=== PATIENT | female | born 1985 | race Caucasian/White ===

== ENCOUNTER 2016-04-03 14:26 | Inpatient (IN) ==
[~2016-04-03 14:26] MED LIST: LEVOFLOXACIN 750 MG/150 ML BAG IV SCH
[2016-04-03] MEDS ORDERED: IOPAMIDOL 100 ML BOTTLE IV ONE (14:27)
[2016-04-03] MEDS ORDERED: 0.9 % SODIUM CHLORIDE 1,000 ML IV ONE ×2 (14:36→17:00)
[2016-04-03] MEDS ORDERED: IPRATROPIUM/ALBUTEROL 3 ML AMPUL.NEB NEB ONE (14:46)
--- NOTE | 2016-04-03 14:59 | Emergency Department Note ---
SOB HPI - General Chief Complaint: Shortness of Breath/Dyspnea Stated Complaint: SOB Time Seen by Provider: 04/03/16 14:53 Source: patient Mode of arrival: ambulatory Limitations: no limitations - History of Present Illness This patient has had lung problems for about 3 years. She has a chronic cough that brings up phlegm. Previous CT scans of chest looks like meth but she doesn 't use meth. Rheumatoid arthritis has been entertained as a possibility. She does not carry a specific diagnosis as far as her lungs. Never had a blood clot. MD Complaint: shortness of breath, cough Onset (ago): year(s) - Related Data Home Medications Medication Instructions Recorded Confirmed cholecalciferol (vitamin D3) 2,000 2,000 unit PO ONCE 09/28/15 04/03/16 unit capsule etonogestrel 68 mg subdermal 1 implant SUBDERMAL ONCE 09/28/15 04/03/16 implant Inhaler, Assist Devices [Aerotrach 1 inh .ROUTE .MEDSUPPLY 04/03/16 04/03/16 Plus] Previous Rx's Medication Instructions Recorded nortriptyline 25 mg capsule 25 mg PO QHS #60 cap 09/28/15 albuterol sulfate HFA 90 2 puff INHALATION Q6-8H PRN #18 g 01/02/16 mcg/actuation aerosol inhaler fluticasone 110 mcg/actuation HFA 2 inh INHALATION BID #12 g 01/02/16 aerosol inhaler acetaminophen 300 mg-codeine 30 mg 1 tab PO BID PRN #30 tab 01/15/16 tablet hydroxychloroquine 200 mg tablet 200 mg PO BID #60 tab 02/15/16 fexofenadine 180 mg tablet 180 mg PO QDAY #60 tab 02/29/16 pantoprazole 40 mg tablet,delayed 40 mg PO QAM #60 tab 02/29/16 release Allergies Allergy/AdvReac Type Severity Reaction Status Date / Time No Known Drug Allergies Allergy Verified 02/29/16 13:04 Review of Systems Constitutional: Denies: fever, chills Eyes: Denies: eye pain ENT ED: Denies: ear pain Cardiovascular: Reports: chest pain. Denies: palpitations Respiratory: Reports: cough, dyspnea Gastrointestinal: Denies: abdominal pain, nausea Genitourinary: Denies: urgency Musculoskeletal: Denies: back pain Integumentary: Denies: rash Neurological: Denies: headache Past Medical History - Past Medical History Medical history: Reports: arthritis (rheumatoid), asthma, GERD, hypertension, kidney stones, migraine, other (UTI) Surgical history ED: Reports: cholecystectomy, tonsillectomy [employer] GRINDER history: Reports: polycystic ovary syndrome - Social History Alcohol use: Reports: Occasionally Drug use: Reports: none Physical Exam - General Limitations: no limitations General appearance: alert - Head Head exam: atraumatic - Eye Eye exam: Present: normal appearance - ENT ENT exam: normal exam - Neck Neck exam: Present: normal inspection - Chest Chest inspection: Present: normal inspection - Respiratory Respiratory exam: Present: other (rales in the bases) - Cardiovascular Cardiovascular exam: Present: regular rate, normal rhythm, normal heart sounds - Abdominal Exam Abdominal exam: Present: soft. Absent: distention, tenderness - Neurological Exam Neurological exam: Present: alert - Psychiatric Psychiatric exam: Present: normal affect - Skin Skin exam: Present: warm, dry Course Vital Signs Temperature 97.4 F L 04/03/16 14:28 Pulse Rate 110 H 04/03/16 14:28 Respiratory Rate 26 H 04/03/16 14:28 Blood Pressure 101/70 04/03/16 14:28 Pulse Oximetry (%) 99 04/03/16 14:28 Temperature 97.8 F 04/04/16 07:01 Pulse Rate 82 04/04/16 07:29 Respiratory Rate 18 04/04/16 07:29 Blood Pressure 108/71 04/04/16 05:00 Pulse Oximetry (%) 96 04/04/16 07:29 Shortness of Breath/Dyspnea - [facility] Narrative Medical decision making narrative: I discussed this patient with the shackler in [place] and she requested that we send her there for further evaluation and treatment. - Lab Data Lab results reviewed: Yes I reviewed the patient's lab results. Result diagrams: 04/04/16 04:20 04/04/16 04:20 Lab Results 04/03/16 04/03/16 04/03/16 Range/Units 14:36 14:36 14:36 WBC 14.4 H (4.5-11.0) K/mcL RBC 5.26 H (4.00-5.20) M/mcL Hgb 14.6 (12.0-15.0) g/dL Hct 44.9 (36.0-48.0) % MCV 85.3 (80.0-100.0) fL MCH 27.9 (26.0-34.0) pg MCHC 32.6 (31.0-36.0) g/dL RDW 13.5 (11.5-14.5) % Plt Count 304 (140-440) K/mcL MPV 8.1 (7.4-10.4) fL Gran % 79.8 H (38.0-78.0) % Lymph % (Auto) 12.9 L (15.5-49.0) % Edwards % (Auto) 5.8 (1.0-9.0) % Eos % (Auto) 1.3 (0.0-7.0) % Baso % (Auto) 0.2 (0.0-2.0) % Gran # 11.5 H (1.8-8.0) K/mcL Lymph # 1.9 (1.5-4.8) K/mcL Edwards # 0.8 (0.1-0.9) K/mcL Eos # 0.2 (0.0-0.7) K/mcL Baso # 0 (0.0-0.3) K/mcL D-Dimer 0.63 H (0.00-0.40) ug/ml VBG Lactic Acid (0.5-2.2) mmol/L Sodium 136 (133-145) mmol/L Potassium 3.5 (3.3-5.1) mmol/L Chloride 100 (96-108) mmol/L Carbon Dioxide 23 (22-30) mmol/L Anion Gap 13.0 (8-16) BUN 7 (6-20) mg/dl Creatinine 0.8 (0.6-1.1) mg/dl GFR Calculation 100 Glucose 112 H (70-105) mg/dL Calcium 9.2 (8.6-10.4) mg/dl Total Bilirubin 0.4 (0.0-1.0) mg/dL AST 17 (0-37) U/l ALT 10 (0-40) U/l Alkaline Phosphatase 73 (39-117) U/L NT-Pro-B Natriuret Pep (0-125) pg/ml Total Protein 8.4 (5.9-8.4) gm/dL Albumin 4.0 (3.2-5.2) gm/dL Globulin 4.4 H (2.2-3.7) gm/dL Albumin/Globulin Ratio 0.9 L (1.0-2.3) Mycoplasma pneumon IgM (NEGATIVE) 04/03/16 04/03/16 04/03/16 Range/Units 14:36 14:36 18:00 WBC (4.5-11.0) K/mcL RBC (4.00-5.20) M/mcL Hgb (12.0-15.0) g/dL Hct (36.0-48.0) % MCV (80.0-100.0) fL MCH (26.0-34.0) pg MCHC (31.0-36.0) g/dL RDW (11.5-14.5) % Plt Count (140-440) K/mcL MPV (7.4-10.4) fL Gran % (38.0-78.0) % Lymph % (Auto) (15.5-49.0) % Edwards % (Auto) (1.0-9.0) % Eos % (Auto) (0.0-7.0) % Baso % (Auto) (0.0-2.0) % Gran # (1.8-8.0) K/mcL Lymph # (1.5-4.8) K/mcL Edwards # (0.1-0.9) K/mcL Eos # (0.0-0.7) K/mcL Baso # (0.0-0.3) K/mcL D-Dimer (0.00-0.40) ug/ml VBG Lactic Acid 0.5 (0.5-2.2) mmol/L Sodium (133-145) mmol/L Potassium (3.3-5.1) mmol/L Chloride (96-108) mmol/L Carbon Dioxide (22-30) mmol/L Anion Gap (8-16) BUN (6-20) mg/dl Creatinine (0.6-1.1) mg/dl GFR Calculation Glucose (70-105) mg/dL Calcium (8.6-10.4) mg/dl Total Bilirubin (0.0-1.0) mg/dL AST (0-37) U/l ALT (0-40) U/l Alkaline Phosphatase (39-117) U/L NT-Pro-B Natriuret Pep < 50.0 (0-125) pg/ml Total Protein (5.9-8.4) gm/dL Albumin (3.2-5.2) gm/dL Globulin (2.2-3.7) gm/dL Albumin/Globulin Ratio (1.0-2.3) Mycoplasma pneumon IgM Negative (NEGATIVE) - Radiology Data Radiology results reviewed: Yes I reviewed the patient's radiology results. Disposition Clinical Impression: Hypoxic respiratory failure, Pneumonitis Disposition: [facility] Condition: Fair
[2016-04-03 15:27] LABS: Basophils # (Auto) 0 K/mcL (0.0-0.3); Basophils % (Auto) 0.2 % (0.0-2.0); Eosinophils # (Auto) 0.2 K/mcL (0.0-0.7); Eosinophils % (Auto) 1.3 % (0.0-7.0); Granulocytes % (Auto) 79.8 % (38.0-78.0); Lymphocytes # (Auto) 1.9 K/mcL (1.5-4.8); Lymphocytes % (Auto) 12.9 % (15.5-49.0); Mean Cell Volume 85.3 fL (80.0-100.0); Mean Corpuscular HGB Conc 32.6 g/dL (31.0-36.0); Mean Corpuscular Hemoglobin 27.9 pg (26.0-34.0); Monocytes # (Auto) 0.8 K/mcL (0.1-0.9); Monocytes % (Auto) 5.8 % (1.0-9.0); Platelet Count 304 K/mcL (140-440); RBC 5.26 M/mcL (4.00-5.20); Red Cell Distribution Width 13.5 % (11.5-14.5)
[2016-04-03 15:38] LABS: ALT/SGPT 10 U/l (0-40); Albumin/Globulin Ratio 0.9 (1.0-2.3); Alkaline Phosphatase 73 U/L (39-117); Blood Urea Nitrogen 7 mg/dl (6-20)
--- NOTE | 2016-04-03 15:59 | XRay Report ---
CLINICAL INFORMATION: Shortness of breath COMPARISON: Chest CT from 03/07/2016 FINDINGS: Heart size, mediastinum and pulmonary vessels are normal. There is mild bilateral mid and lower lung groundglass airspace disease which show slight progression from 01/10/2016. No effusions IMPRESSION: Mild bilateral groundglass airspace disease in the mid and lower lungs which show slight progression from 01/10/2016 Interpreted and Authenticated by: Martin Chávez 04/03/16
--- NOTE | 2016-04-03 17:31 | Cat Scan Report ---
CLINICAL INFORMATION: Hypoxia COMPARISON: Noncontrast chest CT from 03/22/2015 and 03/07/2016 TECHNIQUE: Axial images obtained through the chest. 80 cc intravenous contrast administration was administered, and scanning was performed during pulmonary arterial phase. Sagittally and coronally reformatted images were obtained. MIP reformatted images. FINDINGS: Mediastinal windows show the pulmonary arteries are well opacified - no evidence of embolus. The central pulmonary arteries are mildly enlarged - main pulmonary diameter 3 cm suggestive of mild pulmonary hypertension related to diffuse lung disease.. The thoracic aorta is unremarkable. There are multiple moderately enlarged lymph nodes in the hilar and lower mediastinal region which have progressed from previous study. The esophagus is normal. Pulmonary parenchymal windows show marked groundglass infiltrates diffusely throughout both lungs - the attenuation is more elevated in the lower lobes. There are no effusions. Bones and soft tissues are unremarkable. IMPRESSION: 1. Severe diffuse groundglass infiltrates diffusely throughout both lungs with increased density in the lower lobes. There are also enlarged lymph nodes in the perihilar and lower mediastinal region. Findings have progressed considerably since the previous chest CT. The differential diagnosis for subacute/chronic diffuse groundglass infiltrates is extensive. Most causes include noninfectious inflammatory conditions: Hypersensitivity pneumonitis (please correlate about inhalational exposure to antigens), chronic eosinophilic pneumonia, atypical sarcoidosis, alveolar proteinosis, respiratory bronchiolitis and organizing pneumonia. The earlier chest CTs shows probable centrilobular airspace disease which would increase the probability of respiratory bronchiolitis and hypersensitivity pneumonitis. Respiratory bronchiolitis typically occurs in smokers. High-dose glucocorticosteroids may be therapeutic value since infection is highly unlikely in the subacute/chronic setting. Interpreted and Authenticated by: Martin Chávez 04/03/16
[2016-04-03] MEDS ORDERED: cefTRIAXone 1 GM in DEXTROSE 5% IN WATER 50 ML IV ONE ×2 (17:45→21:00)
[2016-04-03] MEDS ORDERED: LEVOFLOXACIN 500 MG/100 ML BAG IV ONE (17:45)
[2016-04-03] MEDS ORDERED: ACETAMINOPHEN 325 MG TABLET PO PRN (20:43)
[2016-04-03] MEDS ORDERED: ACETAMINOPHEN 1,000 MG/100 ML BOTTLE IV PRN (20:43)
[2016-04-03] MEDS ORDERED: 0.9 % SODIUM CHLORIDE 1,000 ML IV SCH (20:43)
[2016-04-03] MEDS ORDERED: ONDANSETRON 4 MG/2 ML VIAL IV PRN (20:43)
[2016-04-03] MEDS ORDERED: LEVOFLOXACIN 250 MG/50 ML BAG IV ONE (21:00)
[2016-04-03] MEDS: BUDESONIDE 0.5 MG/2 ML AMPUL.NEB NEB SCH ×2 (21:08→23:46)
[2016-04-03 22:37] LABS: Appearance,Urine CLEAR; Bilirubin,Urine NEG (NEG); Color,Urine YELLOW; Glucose,Urine (UA) NEGATIVE (NEG); Leukocyte Esterase,Urine NEG /uL (NEG); Nitrate,Urine NEG (NEG); Protein,Urine NEG (NEG); Specific Gravity,Urine 1.056 (1.000-1.035); Urine Blood NEG mg/dL (<0.03); Urobilinogen,Urine NEG (NEG)
[2016-04-03] MEDS: IPRATROPIUM/ALBUTEROL 3 ML AMPUL.NEB NEB SCH (23:47)
[2016-04-04] MEDS ORDERED: LEVOFLOXACIN 500 MG/100 ML BAG IV ONE (00:45)
[2016-04-04] MEDS: 0.9 % SODIUM CHLORIDE 10 ML SYRINGE IV SCH ×3 (00:51→12:44)
[2016-04-04] MEDS: HEPARIN 5,000 UNIT/ML VIAL SQ SCH ×2 (00:52→10:29)
[2016-04-04] MEDS: IPRATROPIUM/ALBUTEROL 3 ML AMPUL.NEB NEB SCH ×4 (05:12→14:47)
[2016-04-04 05:36] LABS: Mean Cell Volume 85.8 fL (80.0-100.0); Mean Corpuscular HGB Conc 33.2 g/dL (31.0-36.0); Mean Corpuscular Hemoglobin 28.5 pg (26.0-34.0); Platelet Count 276 K/mcL (140-440); Red Cell Distribution Width 13.8 % (11.5-14.5)
[2016-04-04 06:52] LABS: Basophils % (Manual) 1 % (0-2); Lymphocytes % 25 % (15-49); Monocytes % (Manual) 6 % (1-9); Platelet Estimate NORMAL (NORMAL); RBC Morphology NORMAL (NORMAL); Segmented Neutrophils % 67 % (38-78)
[2016-04-04 07:09] LABS: ALT/SGPT 8 U/l (0-40); Albumin 3.7 gm/dL (3.2-5.2); Albumin/Globulin Ratio 1.2 (1.0-2.3); Alkaline Phosphatase 62 U/L (39-117); Bilirubin,Direct < 0.2 mg/dL (0.0-0.3); Blood Urea Nitrogen 7 mg/dl (6-20); Gamma Glutamyl Transpeptidase 21 U/L (5-36); Phosphorous 4.6 mg/dL (2.7-4.5); Uric Acid 4.8 mg/dL (2.5-8.0)
[2016-04-04] MEDS: BUDESONIDE 0.5 MG/2 ML AMPUL.NEB NEB SCH (07:27)
[2016-04-04 08:58] LABS: Strep Pneumoniae Antigen - UR NEGATIVE (NEGATIVE)
--- NOTE | 2016-04-04 09:30 | History and Physical Report ---
DATE OF ADMISSION: 04/03/2016 REASON FOR ADMISSION: Progressive worsening shortness of breath. HISTORY OF CHIEF COMPLAINT: The patient is a 30-year-old with a significant history of dyspnea on exertion, progressing over the last 3-1/2 years. The patient has seen Pulmonology in the past and was diagnosed with hypersensitivity pneumonitis. The patient has had multiple flares in the past which often have not responded to steroids or conventional treatment. She has underwent extensive allergy testing by Dr. Aleman her primary care physician. The patient was last seen about 2-1/[address] Lauren, pulmonology. However, patient has not had any further workup by canvassing manager. She is due to see Dr. Rogers at [place] soon. However, over the last couple of weeks she has had profound dyspnea on exertion limiting her ability to function and has progressed the dyspnea at rest. She denies associated fever or chills but endorses significant weakness, productive yellow-green sputum. She denies associated weight loss, joint pain or glandular swelling. She denies recent exposure to sick contacts. She also denies recent changes in medication. She has been on hydroxychloroquine after review by Rheumatology for suspected rheumatoid arthritis and uses albuterol for symptomatic management of dyspnea which has failed to alleviate symptoms. Initial workup in the ER was significant for white count over 14,000, along with tachycardia, tachypnea, and hypoxia requiring 3 liters of oxygen. Pulmonology at [facility] was consulted. However, due to lack of canvassing manager in the evening, Hospitalist Service was requested for admission until transfer can be initiated for further pulmonology evaluation. REVIEW OF SYSTEMS: Ten-point review of system was performed and negative except the ones discussed above. PAST MEDICAL HISTORY: 1. Suspected rheumatoid arthritis. 2. Polycystic ovarian disease. 3. History of migraine. 4. GERD. SOCIAL HISTORY: She is single. No history of smoking or substance abuse. [place]. FAMILY HISTORY: Significant for diabetes in paternal grandfather, epilepsy in maternal cousin. CURRENT MEDICATIONS: 1. Fexofenadine 180 mg. 2. Pantoprazole 40 mg. 3. Nortriptyline 25 mg. 4. Hydroxychloroquine 200 mg. PHYSICAL EXAMINATION: GENERAL: The patient is in significant distress. BMI 34.8, height 5 feet 2 inches. VITAL SIGNS: Blood pressure 101/88, respiration rate 30, temperature 97.6, pulse 108, sats 97% on 2 liters of oxygen. HEENT: Pupils symmetric. Oral cavity is dry. No ear or nose discharge. Head is normocephalic and atraumatic. NECK: No lymphadenopathy. HEART: S1, S2, tachycardia, irregular rhythm. CHEST: Diminished breath sounds, basal crackles __ with rhonchi. ABDOMEN: Soft and nontender. LOWER EXTREMITIES: No cyanosis or clubbing. No joint swelling. SKIN: No suspicious lesions. PSYCHIATRIC: Alert but anxious. NEURO: Nonfocal. LABS AND IMAGING: CT chest: Severe diffuse ground glass infiltrate diffusely through both lungs with increased density in the lower lobe. Findings have progressed since previous chest CT. White count 14.4, hemoglobin 14.6, platelets 304. ESR 32. D-dimer 0.63. Lactic acid 0.5. Sodium 130, potassium 3.5, creatinine 0.8, BUN 7. LFTs unremarkable. Procalcitonin __0.05. BNP 50. UA unremarkable. Mycoplasma negative. Influenza negative. Strep pneumo and Legionella pneumophila pending. Pneumocystis negative. ASSESSMENT AND PLAN: A 30-year-old with progressive dyspnea on exertion and extensive ground glass infiltrates, likely hypersensitivity pneumonitis. 1. Bilateral diffuse pneumonitis. Unclear etiology. Consult Pulmonology and transfer given progression over the last few years, not responding to conventional treatment and limiting functionality. The patient may require further evaluation including biopsies. At this time, we will start patient on antibiotics given high white count and SIRS to empirically treat infectious etiology and would avoid steroids. However, we will deescalate based on clinical response and if further testing including cultures are negative. 2. Systemic inflammatory response syndrome. Secondary to above 3. Hypoxic respiratory insufficiency. Secondary to above. On 2 L oxygen. 4. Other prior medical issues will be managed on prior home medications. PLAN FOR TODAY: 1. Admit as inpatient. 2. Pulmonary consult at tertiary center. 3. Possible transfer in 24 hours. AA:rene Job ID: [id number] Doc ID: [id number] James GRACE
[2016-04-04] MEDS ORDERED: cefTRIAXone 2 GM in DEXTROSE 5% IN WATER 50 ML IV SCH (12:00)
[2016-04-04] MEDS ORDERED: LEVOFLOXACIN 750 MG/150 ML BAG IV SCH (13:00)
--- NOTE | 2016-04-04 13:22 | Transfer Summary ---
Transfer Discharge Sum: Prov Patient information: Note initiated : 04/04/16 at 12:56 pm Service Date, if different from initiated Date: [] Patient: Sabra Jacques 30 y/o F admitted on 04/03/16 for Shortness of Breath/ Hypersensitivity Pneumonitis. Chief Complaint: [] Date of admission: 04/03/16 20:33 Discharge Date: 04/04/16 Primary care physician: [f_Reg Prim Care Provider] Transfer Discharge Sum: Med - Medications Active and Home Medications: Home Medications cholecalciferol (vitamin D3) 2,000 unit capsule 2,000 unit PO ONCE 09/28/15 [ History Confirmed 04/03/16] etonogestrel 68 mg subdermal implant 1 implant SUBDERMAL ONCE 09/28/15 [History Confirmed 04/03/16] nortriptyline 25 mg capsule 25 mg PO QHS #60 cap 09/28/15 [Rx Confirmed 04/03/16 ] albuterol sulfate HFA 90 mcg/actuation aerosol inhaler 2 puff INHALATION Q6-8H PRN #18 g 01/02/16 [Rx Confirmed 04/03/16] fluticasone 110 mcg/actuation HFA aerosol inhaler 2 inh INHALATION BID #12 g [Rx Confirmed 04/03/16] acetaminophen 300 mg-codeine 30 mg tablet 1 tab PO BID PRN #30 tab 01/15/16 [Rx Confirmed 04/03/16] hydroxychloroquine 200 mg tablet 200 mg PO BID #60 tab 02/15/16 [Rx Confirmed ] fexofenadine 180 mg tablet 180 mg PO QDAY #60 tab 02/29/16 [Rx Confirmed ] pantoprazole 40 mg tablet,delayed release 40 mg PO QAM #60 tab 02/29/16 [Rx Confirmed 04/03/16] Inhaler, Assist Devices [Aerotrach Plus] 1 inh .ROUTE .MEDSUPPLY 04/03/16 [ History Confirmed 04/03/16] Active Medications Acetaminophen (Tylenol) 650 mg PO Q4-6HP PRN PRN Reason: PAIN/FEVER > 101 Albuterol/Ipratropium (Duoneb) 3 ml NEB Q4HRT SARITA Last Admin: 04/04/16 10:57 Dose: Not Given Budesonide (Pulmicort) 0.5 mg NEB Q12 [facility] Last Admin: 04/04/16 07:27 Dose: 0.5 mg Heparin Sodium (Porcine) (Heparin) 5,000 unit SQ Q12 [facility] Last Admin: 04/04/16 10:29 Dose: 5,000 unit Sodium Chloride (Sodium Chloride 0.9%) 1,000 mls @ 50 mls/hr IV .Q20H [facility] Stop: 04/06/16 08:42 Last Admin: 04/04/16 00:48 Dose: 50 mls/hr Acetaminophen (Ofirmev) 1,000 mg in 100 mls @ 200 mls/hr IV Q6HP PRN PRN Reason: PAIN/FEVER > 101 Ceftriaxone Sodium 2 gm/ (Dextrose) 50 mls @ 100 mls/hr IV DAILY [facility] Last Infusion: 04/04/16 12:35 Dose: Infused Levofloxacin (Levaquin) 750 mg in 150 mls @ 100 mls/hr IV DAILY [facility] Last Admin: 04/04/16 12:44 Dose: 100 mls/hr Ondansetron HCl (Zofran) 4 mg IV Q4-6HP PRN PRN Reason: Nausea And Vomiting Sodium Chloride (Saline Flush) 10 ml IV Q8 [facility] Last Admin: 04/04/16 12:44 Dose: Not Given Transfer Discharge Sum: Hosp Hospital course: TRANSFER DIAGNOSES * Diffuse pneumonitis of uncertain etiology. worsening bilateral groundglass infiltrates compared to prior CT. Patient transferring to tertiary Center for pulmonary consult. chronic indolent process. Negative CRP/pro calcitonin/BNP/ ESR 32. * Systemic inflammatory response syndrome with elevated white count. Improved with white count down from 14-10. * hypoxic respiratory insufficiency- secondary to diffuse bilateral groundglass infiltrate/pneumonitis. On 2 L oxygen BRIEF HOSPITAL COURSE 04/03-Ms. Jacques is a 30 year old female admitted with progressive dyspnea on exertion over the last 2 weeks limiting her ability to function and perform ADLs.. Patient was on [address] angiogram chest shows extensive groundglass infiltrates bilateral lung. CRP 0.8,in less than 0.05, ESR 32 highly suggestive against infectious process/bNP less than 50 suggestive against a cardiac process. Patient has been diagnosed with hypersensitivity neuritis in the past however has not responded to conventional treatment. She was also suspected to have rheumatoid lung and currently on hydroxychloroquine but patient has not improved despite efforts by primary care physician and rheumatology. She comes to [facility] ER with above symptoms. Case was discussed at [place] however no summer babysitter was available and patient kept here overnight until the transfer to tertiary Center with pulmonology can be done 04/04- case discussed with summer babysitter at [facility], patient accepted for further evaluation. hospitalist service to coordinate further management of pneumonitis of uncertain etiology and pulmonology consultation. carlee count down from 14-10. mycoplasma/Legionella has been negative. Patient is afebrile on 2 L oxygen. - Time Spent with Patient Total time spent providing and/or coordinating transfer services: Greater than 30 minutes Transfer Discharge Sum: Exam - Constitutional Vitals: Vital Signs Temp Pulse Pulse Resp BP Pulse Ox 04/04/16 12:00 97.7 F 95 H 18 107/73 97 04/04/16 10:59 80 22 04/04/16 07:29 82 18 96 04/04/16 07:01 97.8 F 82 26 H 97 04/04/16 05:00 97.8 F 90 26 H 108/71 98 04/04/16 00:00 98.2 F 108 H 29 H 133/71 94 04/03/16 23:50 108 H 30 H 04/03/16 23:49 90 Intake and Output 04/03/16 04/04/16 04/04/16 21:59 05:59 13:59 Intake Total 780 / 780 290 / 290 Output Total 200 / 200 500 / 500 600 / 600 Balance -200 / 950 280 / 280 -310 / -310 Intake: IV 50 / 50 Dextrose 5% in Water 50 50 / 50 ml @ 100 mls/hr IV DAILY SARITA with Rocephin 2 gm Rx #:[id number] Oral 780 / 780 240 / 240 Output: Void Amount 200 / 200 500 / 500 600 / 600 Other: Meal Nourishment/Supplement Breakfast Percent of Meal Consumed 100% 75% Feeding Ability Independent Weight 190 lb Transfer Discharge Sum: Data Procedures and tests throughout hospitalization: Pending Orders 04/03/16 21:55 Legionella pneumophilia Ag, Ur Urgent 04/04/16 13:00 Levofloxacin [Levaquin] 750 mg in 150 ml IV DAILY Transfer Discharge Sum: A/P - Plan Functional capacity at transfer: independent ambulation Overall status at transfer: patient is not back to baseline Disposition: Xfer Acute Care Hospital Quality Measure Queries - VTE Deep Vein Thrombosis/Pulmonary Embolism Present on Admission: No
== END 2016-04-04 15:10 | disposition short-term general hospital (02) | DRG 196 ==
LOC: ED 14:26 → ICU 20:33
PROVIDERS: ADMIT Internal Medicine; ATTEND Internal Medicine